=== PATIENT | male | born 1995 | race Caucasian/White ===

== ENCOUNTER 2017-09-30 18:23 | Emergency (ER) | payer BC ==
[2017-09-30 18:29] VITALS: BP 139/72; PULSE 57; RESP 16; TEMP 98.1; O2SAT 99
[2017-09-30] MEDS ORDERED: IBUPROFEN 600 MG TAB PO ONE (18:30)
--- NOTE | 2017-09-30 19:00 | EDPHY ---
H & P Stated Complaint: FELL BACKWARDS SNOWBOARDING INJ L WRIST Time Seen by Provider: 09/30/17 18:45 HPI/ROS: HPI: This is a 21-year-old male presents with Chief Complaint: FELL BACKWARDS SNOWBOARDING INJ L WRIST Location: Left wrist Quality: Injury Duration: 2-3 hr prior to arrival Signs and Symptoms: No bleeding, no radiation, no numbness, no weakness, no tingling, no incontinence, no decreased range of motion, + swelling, + pain Timing: Sudden Severity: Moderate Context: Patient is right-hand dominant, was snowboarding and fell backwards, when he used his left hand to stop him from falling. He experience right radial aspect wrist pain that is worsened with movement accompanied by mild swelling and decreased range of motion. Denies any paresthesias/skin color changes. Has not taking [id number] medications or applied ice. Patient has a history of multiple fractures of his left wrist. Modifying Factors: None Comment: ROS: see HPI Constitutional: No fever, no chills, no weight loss Eyes: No blurred vision Respiratory: No shortness of breath, no cough Cardiovascular: No chest pain Gastrointestinal: No nausea, no vomiting no diarrhea Genitourinary: No dysuria Extremities: No myalgias Neurologic: No weakness, no numbness Skin: No rashes Hematologic: No bruising, no bleeding MEDICAL/SURGICAL/SOCIAL HISTORY: Medical history: Generally healthy. Does not take any regular medications. Surgical history: Denies Social history: Student. CONSTITUTIONAL: Young adult white male, polite and cooperative, awake and alert , no obvious distress HEENT: Atraumatic and normocephalic. NECK: supple, no midline tenderness, flexion 45 degrees, extension 45 degrees, right and left lateral flexion 45 degrees. No meningismus. Cardiovascular: Normal S1/S2, regular rate, regular rhythm, without murmur rub or gallop. PULMONARY/CHEST: Symmetrical and nontender. no crepitus. Clear to auscultation bilaterally. Good air movement. No accessory muscle usage. ABDOMEN: Soft, nondistended, nontender, no ecchymosis. PELVIC: no pain with rocking; bilateral hips flexion 125 degrees, extension 30 degrees, with no pain internal rotation and no pain external rotation. BACK: No midline tenderness, no paraspinous spasm, deep tendon reflexes 2/2, no pain with straight leg raise EXTREMITIES: 2/2 radial pulses, left WRIST: Extension to 40, flexion to 40, radial deviation to 10 degree, ulnar deviation to 20, no scaphoid tenderness, no tenderness over ulnar styloid, + moderate tenderness over radial styloid. no deformities, no clubbing, no cyanosis or edema. NEUROLOGICAL: no focal neuro deficits. GCS 15. Light touch sensation intact. SKIN: Warm and dry, no erythema. no rash. Good capillary refill. Source: Patient Exam Limitations: No limitations - Personal History Current Tetanus/Diphtheria Vaccine: Yes - Medical/Surgical History Hx Asthma: No Hx Chronic Respiratory Disease: No Hx Diabetes: No Hx Cardiac Disease: No Hx Renal Disease: No Hx Cirrhosis: No Hx Alcoholism: No Hx HIV/AIDS: No Hx Splenectomy or Spleen Trauma: No Other PMH: MULTIPLE FX L WRIST - Social History Smoking Status: Current every day smoker Constitutional: Initial Vital Signs Temperature (C) 36.7 C 09/30/17 18:26 Heart Rate 57 L 09/30/17 18:26 Respiratory Rate 16 09/30/17 18:26 Blood Pressure 139/72 H 09/30/17 18:26 O2 Sat (%) 99 09/30/17 18:26 O2 Delivery Mode Room Air Allergies/Adverse Reactions: No Known Allergies Allergy (Unverified 09/30/17 18:26) Home Medications: Medication Instructions Recorded NK [No Known Home Meds] 09/30/17 Medical Decision Making - Diagnostics Imaging Results: Imaging Impressions Wrist X-Ray 09/30/17 18:29 Impression: 1. No definite acute fracture. 2. Consider additional imaging if symptoms persist, if clinically indicated. Procedures: Procedure: Splint placement. A left Velcro wrist splint was applied by the Emergency Room geotechnicial properties technician. After application of the splint I returned and re-examined the patient. The splint was adequately immobilizing the joint and distal to the splint the patient's circulation and sensation was intact. ED Course/Re-evaluation: Left wrist x-ray and ibuprofen ordered Ice pack applied No signs of neurovascular compromise/tenting of skin/compartment syndrome/ extremities and joints examined above and below area of concern and are neurovascularly intact. My read of x-ray shows no acute fracture/dislocation Concern for sprain; placed in Velcro wrist splint; rice therapy This patient was seen under the supervision of my secondary supervising physician. I evaluated care for this patient independently. Discussed this patient with Dr. Martinez who did not see the patient. Patient's presentation, labs/imaging, treatment and plan of care were discussed with secondary supervising physician. Differential Diagnosis: Differential diagnosis includes but is not limited to ligament injury, nerve injury, fracture, contusion, sprain. - Data Points Medications Given: Discontinued Medications Ibuprofen (Motrin) 600 mg PO EDNOW ONE Stop: 09/30/17 18:31 Last Admin: 09/30/17 18:37 Dose: 600 mg Departure - Departure Disposition: Home, Routine, Self-Care Clinical Impression: Left wrist sprain Qualifiers: Encounter type: initial encounter Qualified Code(s): S63.502A - Unspecified sprain of left wrist, initial encounter Condition: Good Instructions: Wrist Sprain (ED) Additional Instructions: Wear the splint while out of bed until pain free or follow up with Orthopedics. Take Tylenol 650 mg every 4 hours and/or Ibuprofen 600 mg every 8 hours with food as needed for pain. Apply ice for 30 minutes at a time; 2-3 times per day for the next 1-2 days. Follow up with Orthopedics in 7-10 if symptoms persist or worsen at which time they will evaluate and recommend with you if conservative management versus adjuvant therapy is indicated. The x-rays obtained in the emergency department today demonstrate no evidence of an obvious fracture. Sometimes fractures are not obvious on the initial set of x-rays performed in the ED. For this reason, you should have repeat x-rays performed in 7-10 days if you are having any pain exclude the possibility of an occult fracture. Referrals: Casandra Alatorre MD [Medical Doctor] - As per Instructions
== END 2017-09-30 19:22 | disposition home or self-care (01) ==
DX: S63.502A Unspecified sprain of left wrist, initial encounter (principal); F17.200 Nicotine dependence, unspecified, uncomplicated; V00.311A Fall from snowboard, initial encounter; Y99.8 Other external cause status; Y93.23 Activity, snow (alpine) (downhill) skiing, snowboarding, sledding, tobogganing and snow tubing
CPT/HCPCS: L3908